=== PATIENT | male | born 1985 | race Caucasian/White ===

== ENCOUNTER 2019-11-16 15:58 | Emergency (ER) | payer SELFPAY ==
[2019-11-16] MEDS ORDERED: LIDOCAINE 1% INJ-PF (10 MG/ML) 30 ML SDV INJ ONE (16:09)
--- NOTE | 2019-11-16 16:12 | ER Document Report ---
HPI - HPI Time Seen by Provider: 11/16/19 16:05 Pain Level: 1 Context: 34 y/o male presents for laceration to left knee that occurred 3 hours ago. Pt accidentally cut himself on his saw blade. States tried to place bandages on it but kept opening back up. Tetanus is up to date. Pt is able to ambulate. Denies any other injuries. - MUSCULOSKELETAL Musculoskeletal: REPORTS: Extremity pain Past Medical History - Social History Smoking Status: Current Every Day Smoker Drug Abuse: Marijuana Family History: Reviewed & Not Pertinent Patient has suicidal ideation: No Patient has homicidal ideation: No - Immunizations Hx Diphtheria, Pertussis, Tetanus Vaccination: Yes Vertical Provider Document - CONSTITUTIONAL Agree With Documented VS: Yes Notes: GENERAL: Well-appearing, well-nourished and in no acute distress. HEAD: Atraumatic, normocephalic. EYES: Extraocular movements intact, sclera anicteric, conjunctiva are normal. NECK: Normal range of motion, supple without lymphadenopathy or JVD. Left knee: FROM, able to ambulate. Approx 3 cm linear laceration noted medially/inferior to left knee. NEUROLOGICAL: Cranial nerves II through XII grossly intact. Normal speech, normal gait. PSYCH: Normal mood, normal affect. SKIN: Warm, Dry, normal turgor, no rashes or lesions noted. - INFECTION CONTROL TRAVEL OUTSIDE OF THE [place] IN LAST 30 DAYS: Yes Course - Re-evaluation Re-evalutation: 11/16/19 17:21 #5 4-0 prolene sutures applied to linear laceration. Pt tolerated procedure well. Sterile dressing applied. Pt given strict return precautions and pt will return to ER or urgent care in 7-10 days for suture removal. Pt voices understanding and agrees with plan of care. - Vital Signs Vital signs: Temp Pulse Resp BP Pulse Ox 98.0 F 94 16 121/61 97 11/16/19 16:02 11/16/19 16:02 11/16/19 16:02 11/16/19 16:02 11/16/19 16:02 Procedures - Laceration/Wound Repair Left Knee Wound length (cm): 3 Wound's Depth, Shape: Superficial, Linear Laceration pre-procedure: Sterile PPE donned, PortilloClegregoria applied Anesthetic type: 1% Lidocaine Volume Anesthetic (mLs): 5 Wound explored: Clean Irrigated w/ Saline (mLs): 10 Wound Repaired With: Sutures Suture Size/Type: 4:0, Prolene Number of Sutures: 5 Layer Closure?: No Post-procedure wound care: Sterile dressing applied Post-procedure NV exam normal: Yes Complications: No Discharge - Discharge Clinical Impression: Laceration of left knee Qualifiers: Encounter type: initial encounter Qualified Code(s): S81.012A - Laceration without foreign body, left knee, initial encounter Condition: Stable Disposition: HOME, SELF-CARE Instructions: Soap Cleansing ([facility]), Laceration Care ([facility]), Antibiotic Ointment Protection ([facility]) Additional Instructions: Please keep area clean. Please keep area covered when out or at work. Please watch for any signs of infection which include swelling, redness to area, pus drainage, increased pain. Return immediately to ER if you start having any worsening symptoms, including signs of infection, fever, inability to move your knee, pain with standing, or any other symptoms that are concerning to you. Please either return to ER or go to urgent care in 7 to 10 days to have sutures removed.
[2019-11-16 17:25] VITALS: BP 127/74
== END 2019-11-16 17:28 | disposition home or self-care (01) ==
LOC: ER 15:58
DX: S81.012A Laceration without foreign body, left knee, initial encounter (principal); R21 Rash and other nonspecific skin eruption; W29.3XXA Contact with powered garden and outdoor hand tools and machinery, initial encounter; F17.200 Nicotine dependence, unspecified, uncomplicated; F12.10 Cannabis abuse, uncomplicated
CPT/HCPCS: 99282; 12002; J3490

== ENCOUNTER 2020-08-30 19:55 | Emergency (ER) | payer SELFPAY ==
[2020-08-30] MEDS ORDERED: FAMOTIDINE 20 MG TABLET PO ONE (22:08)
--- NOTE | 2020-08-30 23:01 | RADIOLOGY REPORT (SQ) ---
EXAM DESCRIPTION: CHEST SINGLE VIEW 08/30/2020 12:00 AM [employer] WORK[employer] CLINICAL HISTORY: 35 years Male, cough; ; COMPARISON: None. FINDINGS: Single view is obtained. Cardiac and mediastinal contours are normal. Lungs are clear. No pleural effusion or pneumothorax. IMPRESSION: No acute disease.
[2020-08-30 23:29] LABS: A TYPE INFLUENZA AG NEGATIVE (NEGATIVE); B INFLUENZA AG NEGATIVE (NEGATIVE)
--- NOTE | 2020-08-30 23:51 | ER Document Report ---
HPI - HPI Time Seen by Provider: 08/30/20 20:58 Pain Level: Denies Context: Patient is a 35-year-old male who presents to the emergency department with a chief complaint of bilateral hand rash and bilateral feet rash. States that he might have had contact coworkers that possibly tested positive for COVID-19. States that they have not been at work for the past about a week. Denies any past medical history. He does not take any medicines on a regular basis. - CONSTITUTIONAL Constitutional: REPORTS: Chills. DENIES: Fever - EENT EENT: REPORTS: Sore Throat - RESPIRATORY Respiratory: REPORTS: Trouble Breathing, Coughing - REPRODUCTIVE Reproductive: DENIES: : - MUSCULOSKELETAL Musculoskeletal: REPORTS: Swelling - bilateral hands and feet - DERM Skin Color: Normal Skin Problems: None Past Medical History - Social History Smoking Status: Current Every Day Smoker Frequency of alcohol use: Occasional Drug Abuse: Marijuana Family History: Reviewed & Not Pertinent Psychiatric Medical History: Reports: Hx Depression - anxiety - Immunizations Hx Diphtheria, Pertussis, Tetanus Vaccination: Yes Vertical Provider Document - CONSTITUTIONAL Agree With Documented VS: Yes Exam Limitations: No Limitations General Appearance: No Apparent Distress - INFECTION CONTROL TRAVEL OUTSIDE OF THE [place] IN LAST 30 DAYS: Yes - HEENT HEENT: Atraumatic, Normocephalic, PERRLA, Pharyngeal Tenderness, Pharyngeal [place] thema. negative: Conjuctival Injection, Pharyngeal Exudate, Tympanic Membrane Red, Tympanic Membrane Bulging - NECK Neck: Normal Inspection - RESPIRATORY Respiratory: Breath Sounds Normal, No Respiratory Distress - CARDIOVASCULAR Cardiovascular: Regular Rate, Regular Rhythm Pulses: Normal: Radial - GI/ABDOMEN Gastrointestinal: Abdomen Non-Tender - MUSCULOSKELETAL/EXTREMETIES Musculoskeletal/Extremeties: FROM - NEURO Level of Consciousness: Awake, Alert, Appropriate Motor/Sensory: No Motor Deficit, No Sensory Deficit - DERM Integumentary: Warm, Dry, Rash - bilateral hands and feet Course - Re-evaluation Re-evalutation: Patient's hand swelling has improved with a dose of Pepcid. Advised him to continue to take Pepcid and Benadryl for his hand swelling. The patient was evaluated during the global COVID-19 pandemic and that diagnosis was suspected/considered upon their initial presentation. Their evaluation, treatment and testing was consistent with current guidelines for patients who present with complaints or symptoms that may be related to COVID-19. Rapid strep bed flu tests are negative. Throat culture was sent. Patient is nontoxic in appearance. Follow-up precautions were given. Verbal discharge instructions were given to the patient. They verbalized understanding. They are stable for discharge. - Vital Signs Vital signs: Temp Pulse Resp BP Pulse Ox 98.0 F 87 20 125/62 97 08/30/20 21:01 08/30/20 20:25 08/30/20 20:25 08/30/20 20:25 08/30/20 20:25 - Laboratory Results Critical Laboratory Results Reviewed: No Critical Results - Radiology Results Critical Radiology Results Reviewed: No Critical Results Discharge - Discharge Clinical Impression: Bilateral hand swelling, Cough, Suspected COVID-19 virus infection Condition: Stable Disposition: HOME, SELF-CARE Instructions: COVID-19 Guidance for Persons Under Investigation Additional Instructions: As a person under investigation for COVID-19, the [place] Department of Health and Human Services (division on public health) advises you to adhere to the following guidance until your test results are reported to you. If your test result is positive, you will receive additional information from your provider and your local health department at that time. Remain at home until you are cleared by the health provider or public health authorities. Keep a log of visitors to your home, notify any visitors to your home of your isolation status. If you plan to move to a new address or leave the [facility], notify the local health department in your County. Call your Doctor or seek care if you have an urgent medical need. Before seeking medical care, call him to get instructions from the provider before arriving at the medical office, clinic, or hospital. Notify them that you are being tested for the virus (COVID-19) so that arrangements can be made, as necessary, to prevent transmission to others in the healthcare setting. Next, notify the local health department in your county. Prescriptions: Famotidine [Pepcid 20 mg Tablet] 40 mg PO BID #20 tablet Referrals: [facility] [Provider Group] - Follow up as needed
[2020-08-31 00:14] VITALS: BP 120/60
== END 2020-08-31 00:14 | disposition home or self-care (01) ==
LOC: ER 19:55
DX: R21 Rash and other nonspecific skin eruption (principal); R22.33 Localized swelling, mass and lump, upper limb, bilateral; R05 Cough; Z20.828 Contact with and (suspected) exposure to other viral communicable diseases; F17.200 Nicotine dependence, unspecified, uncomplicated
CPT/HCPCS: 99284; 87070; 87880; 87635; 87077; 87804; 71045; C9803

== ENCOUNTER 2020-09-26 06:56 | Emergency (ER) | payer SELFPAY ==
[2020-09-26 07:11] VITALS: BP 119/85
--- NOTE | 2020-09-26 07:47 | RADIOLOGY REPORT (SQ) ---
XR HAND 3 OR MORE VIEWS CLINICAL STATEMENT: crush injury COMPARISON: None FINDINGS: Bony alignment is anatomic. There is no fracture or dislocation. The soft tissues are unremarkable. IMPRESSION: No fracture.
--- NOTE | 2020-09-26 09:06 | ER Document Report ---
HPI - HPI Time Seen by Provider: 09/26/20 08:25 Pain Level: 4 Context: Patient is a 35-year-old male who presents to the emergency department with a chief complaint of left hand pain. He was carrying an air conditioning unit and had his hand smashed between a wall and the unit 5 days ago. He he started get better and went to work yesterday and states that his hand continues to hurt. States that the pain is mainly on the palmar aspect of his right hands, near his thumb. - ROS Systems Reviewed and Negative: Yes All other systems reviewed and negative - CONSTITUTIONAL Constitutional: DENIES: Fever, Chills - EENT EENT: DENIES: Sore Throat, Ear Pain, Nasal Drainage-Clear - REPRODUCTIVE Reproductive: DENIES: : - MUSCULOSKELETAL Musculoskeletal: REPORTS: Extremity pain - Left hand; see HPI. DENIES: Swelling - DERM Skin Color: Normal Skin Problems: None Past Medical History - Social History Smoking Status: Current Every Day Smoker Family History: Reviewed & Not Pertinent Psychiatric Medical History: Reports: Hx Depression - anxiety - Immunizations Hx Diphtheria, Pertussis, Tetanus Vaccination: Yes Vertical Provider Document - CONSTITUTIONAL Agree With Documented VS: Yes Exam Limitations: No Limitations General Appearance: No Apparent Distress - INFECTION CONTROL TRAVEL OUTSIDE OF THE [place] IN LAST 30 DAYS: Yes - HEENT HEENT: Atraumatic, Normocephalic, PERRLA - NECK Neck: Normal Inspection - RESPIRATORY Respiratory: Breath Sounds Normal, No Respiratory Distress - CARDIOVASCULAR Cardiovascular: Regular Rate, Regular Rhythm Pulses: Normal: Radial - MUSCULOSKELETAL/EXTREMETIES Musculoskeletal/Extremeties: FROM - Slightly decreased on fourth digit and fifth digit to thumb touch, Tender - Left palmar aspect of hand near base of thumb, No Edema - NEURO Level of Consciousness: Awake, Alert, Appropriate Course - Re-evaluation Re-evalutation: 09/26/20 09:10 Patient has tenderness noted to his palmar aspect of his left hand. Patient will be placed in a thumb spica to help with comfort. Advised him to follow-up with orthopedics if he continues to have pain. X-ray did not show any fracture. Capillary refill less than 3 seconds. Radial pulse 2+. No vascular compromise noted. Follow-up precautions were given. Verbal discharge instructions were given to the patient. They verbalized understanding. They are stable for discharge. - Vital Signs Vital signs: Temp Pulse Resp BP Pulse Ox 98.8 F 98 16 119/85 97 09/26/20 07:09 09/26/20 07:09 09/26/20 07:09 09/26/20 07:09 09/26/20 07:09 - Laboratory Results Critical Laboratory Results Reviewed: No Critical Results - Radiology Results Critical Radiology Results Reviewed: No Critical Results Procedures - Immobilization Left Hand Pre-Proc Neuro Vasc Exam: Normal Immobilizer type: Thumb spica Post-Proc Neuro Vasc Exam: Normal, Unchanged from pre-exam Alignment checked and good: Yes Discharge - Discharge Clinical Impression: Hand contusion Qualifiers: Encounter type: initial encounter Laterality: left Qualified Code(s): S60.222A - Contusion of left hand, initial encounter Condition: Stable Disposition: HOME, SELF-CARE Additional Instructions: You are seen today in the emergency department for left hand pain. Your x-ray did not show any fractures at this time. You are being placed in a thumb spica splint for comfort. Keep this on for the next couple of days and rest. Take ibuprofen 600 mg and acetaminophen 1000 mg every 6 hours for pain relief. Do no t get your splint wet. If your pain is not better in the next week or 2, follow-up with orthopedics. Forms: Return to Work Referrals: RYLAN BHAT MD [ACTIVE STAFF] - Follow up as needed [facility] [Provider Group] - Follow up as needed [facility] [Provider Group] - Follow up as needed [facility] [Provider Group] - Follow up as needed
== END 2020-09-26 09:38 | disposition home or self-care (01) ==
LOC: ER 06:56
DX: S60.222A Contusion of left hand, initial encounter (principal); W23.0XXA Caught, crushed, jammed, or pinched between moving objects, initial encounter; F17.200 Nicotine dependence, unspecified, uncomplicated
CPT/HCPCS: 99283

== ENCOUNTER 2020-10-03 10:07 | Emergency (ER) | payer SELFPAY ==
[2020-10-03 10:20] VITALS: BP 116/72
--- NOTE | 2020-10-03 10:38 | ER Document Report ---
HPI - HPI Time Seen by Provider: 10/03/20 10:29 Notes: 35-year-old male presents the emergency room today for reevaluation of his left hand after he sustained a crush while carrying an air conditioning unit while he was at work A week prior to being evaluated on September 26 in the emergency room, where he had x-rays which were negative for any acute fracture dislocation or foreign body. Patient was placed in a splint and advised to follow-up outpatient with operations specialists and advised take a week off from work. Patient states he is not having any pain today in his left hand or fingers. Patient has not been taking any [id number] medications. denies fevers, chills, chest pain,palpitations, shortness of breath, dyspnea, nausea, vomiting, diarrhea, neck pain, weakness, bowel or bladder dysfunction, saddle anesthesia, numbness or tingling in bilateral upper or lower extremities equally, muscle paralysis, weakness in bilateral upper or lower extremities equally or rash. Denies IV drug use. - REPRODUCTIVE Reproductive: DENIES: : Past Medical History - General Information source: Patient - Social History Smoking Status: Unknown if Ever Smoked Family History: Reviewed & Not Pertinent Psychiatric Medical History: Reports: Hx Depression - anxiety - Immunizations Hx Diphtheria, Pertussis, Tetanus Vaccination: Yes Vertical Provider Document - CONSTITUTIONAL Agree With Documented VS: Yes Exam Limitations: No Limitations General Appearance: WD/WN Notes: MEDICATIONS: I agree with the patient medications as charted by the RN. ALLERGIES: I agree with the allergies as charted by the RN. PAST MEDICAL HISTORY/PAST SURGICAL HISTORY: Reviewed and agree as charted by RN. SOCIAL HISTORY: Reviewed and agree as charted by RN. FAMILY HISTORY: No significant familial comorbid conditions directly related to patient complaint EXAM: Reviewed vital signs as charted by RN. PHYSICAL EXAMINATION:reviewed vital signs by RN GENERAL: Well-appearing, well-nourished and in no acute distress. HEAD: Atraumatic, normocephalic. EYES: Pupils equal round and reactive to light, extraocular movements intact, sclera anicteric, conjunctiva are normal. ENT: Nares patent, oropharynx clear without exudates. Moist mucous membranes. NECK: Normal range of motion, supple without lymphadenopathy LUNGS: Breath sounds clear to auscultation bilaterally and equal. No wheezes rales or rhonchi. HEART: Regular rate and rhythm without murmurs ABDOMEN: Soft, nontender, nondistended abdomen. No guarding, no rebound. No masses appreciated. Musculoskeletal: Normal range of motion, no pitting or edema. No cyanosis.. Full motor and sensory function in JUSTIN. Medical Assembler + 2 BUE equally. Snuffbox tenderness negative bilaterally. Normal opposition, flexion, extension, abduction and abduction of all fingers in left and right hand.. Ulnar and radial pulses + 2 BUE equally. DTRs +2 in bilateral upper extremities equally. No deformity noted of hand or wrist bilaterally. Normal flexion, extension, ulnar/radial deviation of wrists bilaterally. Negative kanavels sign. No open wounds or drainage from wrist. No vascular compromise. full motor and sensory function with medial, radial and ulnar nerves bilaterally and equally. NEUROLOGICAL: Cranial nerves grossly intact. Normal speech, normal gait. N ormal sensory, motor exams PSYCH: Normal mood, normal affect. SKIN: Warm, Dry, normal turgor, no rashes or lesions noted. - INFECTION CONTROL TRAVEL OUTSIDE OF THE [place] IN LAST 30 DAYS: Yes Course - Re-evaluation Re-evalutation: 10/03/20 11:04 Afebrile, vital stable no distress. Nurses notes reviewed. Patient has benign hand exam. No focal neurological findings founded on hand exam, normal motor or sensory function to bilateral upper extremities. Medical Assembler +2 bilaterally equally, reflexes are normal bilaterally in upper extremities. Patient states he needs a note to return back to work without any limitations, I do agree with this and believe that patient can return back to work without any limitations. Advised to follow-up with the operations specialists if he does experience any pain in his left hand, that referral has been given today. Patient was discharged home on 26 September with a hand splint, advised to wear that as needed. He can also take [id number] Tylenol and ibuprofen for pain control. After performing a Medical Screening Examination, I estimate there is LOW risk for OPEN FRACTURE, COMPARTMENT SYNDROME, DEEP VENOUS THROMBOSIS, ACUTE TENDON RUPTURE, or NEUROVASCULAR INJURY thus I consider the discharge disposition reasonable. I have reevaluated this patient multiple times and no significant life threatening changes are noted. The patient and I have discussed the diagnosis and risks, and we agree with discharging home to closely follow-up with their primary doctor or the referral orthopedist with the understanding that symptoms and presentations can change. We also discussed returning to the Emergency Department immediately if new or worsening symptoms occur. We have discussed the symptoms which are most concerning (e.g., changing or worsening pain, numbness, weakness) that necessitate immediate return - Vital Signs Vital signs: Temp Pulse Resp BP Pulse Ox 98.6 F 73 16 116/72 100 10/03/20 10:17 10/03/20 10:17 10/03/20 10:17 10/03/20 10:10/03/20 10:17 - Laboratory Results Critical Laboratory Results Reviewed: No Critical Results - Radiology Results Critical Radiology Results Reviewed: No Critical Results Discharge - Discharge Clinical Impression: hand contusion, resolved Condition: Stable Disposition: HOME, SELF-CARE Instructions: Sprain ([facility]) Additional Instructions: You can return today to work without any precautions. It is advised to follow- up with an operations specialists if you wish. Return immediately for any new or worsening symptoms. Follow up with primary care provider, call tomorrow to make followup appointment. Forms: Return to Work Referrals: JEMIMA AUSTIN DO [ACTIVE STAFF] - Follow up as needed GAIL OTERO MD [COMMUNITY BASED STAFF] - Follow up as needed
== END 2020-10-03 10:43 | disposition home or self-care (01) ==
LOC: ER 10:07
DX: S60.229D Contusion of unspecified hand, subsequent encounter (principal); S67.22XD Crushing injury of left hand, subsequent encounter; X58.XXXD Exposure to other specified factors, subsequent encounter; Z79.891 Long term (current) use of opiate analgesic
CPT/HCPCS: 99282